=== PATIENT | male | born 1935 | race Two or more races ===

== ENCOUNTER 2017-09-15 10:17 | Inpatient (IN) | payer MEDICARE, OTHER ==
[~2017-09-15] VITALS: Ht 167.6 cm; Wt 66.5 kg
[2017-09-15] MEDS ORDERED: ASPirin 81 mg TAB PO ONE (11:00)
[2017-09-15 11:22] LABS: Basophils # (auto) 0 uL; Eosinophils # (auto) 0.2 uL; Hemoglobin 11.1 g/dL (13.5-17.5); Lymphocytes # (auto) 1.7 uL; Monocytes # (auto) 0.5 uL; Nucleated Red Blood Cells % 0.1 %; White Blood Cell 5.5 10^3/uL (4.4-10.8)
[2017-09-15 11:23] LABS: Basophils % (auto) 0.6 % (0.0-2.0); Eosinophils % (auto) 3.2 % (0.0-7.0); Hematocrit 33.8 % (41.0-53.0); Lymphocytes % (auto) 30.3 % (10.0-50.0); Mean Corpuscular Hemoglobin 33.7 pg (28.0-32.0); Mean Corpuscular Hgb Conc. 32.9 g/dL (32.0-36.0); Mean Corpuscular Volume 102.5 fL (80.0-100.0); Monocytes % (auto) 8.8 % (0.0-12.0); Neutrophils # (auto) 3.2 uL; Neutrophils % (auto) 57.1 % (37.0-80.0); Platelet Count (auto) 324 10^3/uL (140-450); Red Cell Distribution Width 16.2 % (11.8-14.3)
[2017-09-15 11:25] LABS: INR 0.95 (0.9-1.15); Partial Thromboplastin Time 26.5 sec (22.64-33.71); Prothrombin Time 10.4 sec (9.37-12.3)
[2017-09-15 11:41] LABS: Alanine Aminotransferase 48 U/L (16-61); Albumin 2.1 g/dL (3.4-5.0); Alkaline Phosphatase 173 U/L (45-117); Anion Gap 11 (5-15); Aspartate Aminotransferase 53 U/L (15-37); BUN/Creatinine Ratio 13.9; Bilirubin, Total 0.6 mg/dL (0.2-1.0); Blood Urea Nitrogen 17 mg/dL (7-18); Calcium 7.8 mg/dL (8.5-10.1); Carbon Dioxide 24 mmol/L (21-32); Chloride 107 mmol/L (98-107); GFR African American 73 mL/min; GFR Non-African American 60 mL/min; Glucose 148 mg/dL (74-106); Potassium 3.9 mmol/L (3.5-5.1); Sodium 142 mmol/L (136-145)
[2017-09-15] MEDS ORDERED: ALBU2TAB4 INH (13:01)
[2017-09-15] MEDS ORDERED: ALLO100T PO (13:02)
[2017-09-15] MEDS ORDERED: ASP81EC PO (13:02)
[2017-09-15] MEDS ORDERED: BENZ100C97 PO (13:04)
[2017-09-15] MEDS ORDERED: ATOR40TA52 PO (13:04)
[2017-09-15] MEDS ORDERED: COLC1CAP PO (13:20)
[2017-09-15] MEDS ORDERED: FINA5TAB4 PO (13:21)
[2017-09-15] MEDS ORDERED: FLUT0.05 NAS (13:21)
[2017-09-15] MEDS ORDERED: LEVO75TA50 PO (13:22)
[2017-09-15] MEDS ORDERED: LISI2.5T47 PO (13:24)
[2017-09-15] MEDS ORDERED: LOPE2CAP PO (13:24)
[2017-09-15] MEDS ORDERED: HYDROcodone-ACET 5/325MG TAB PO PRN (15:15)
[2017-09-15] MEDS ORDERED: NITROGLYCERIN 0.4 MG SL TAB SL PRN (15:15)
[2017-09-15] MEDS ORDERED: ONDANSETRON HCL 4 MG/2 ML VIAL IV PRN (15:15)
[2017-09-15] MEDS ORDERED: MORPHINE SULFATE 4 MG/ML SYR/VIAL IV PRN ×2 (15:15)
[2017-09-15] MEDS ORDERED: METO25TA5 PO (16:06)
[2017-09-15] MEDS ORDERED: MIRT15TA3 PO (16:07)
[2017-09-15] MEDS ORDERED: SILD100T57 PO (16:09)
[2017-09-15] MEDS ORDERED: TRAZ50TA2 PO (16:09)
[2017-09-15] MEDS ORDERED: TAMS0.4C36 PO (16:09)
[2017-09-15] MEDS: SODIUM CHLORIDE 0.9% 1,000 ML IV SCH (16:22)
[2017-09-15] MEDS ORDERED: IOHEXOL 300 MG/ML 100ML BOTTLE IJ ONE (17:08)
[2017-09-15] MEDS ORDERED: HEPARIN DRIP/D5W 100UNITS/ML 250 ML IV SCH (17:36)
[2017-09-15] MEDS ORDERED: ATORVASTATIN 20 MG TAB PO ONE (17:45)
[2017-09-15] MEDS ORDERED: CLOPIDOGREL BISULFATE 75 MG TAB PO ONE (17:45)
[2017-09-15] MEDS ORDERED: HEPARIN SODIUM (PORCINE) 5000 UNITS/ML 1ML VIAL IV ONE (17:45)
[2017-09-15] MEDS: IPRATROPIUM BROM 0.5 MG/2.5ML INH SOL NEB SCH (18:45)
[2017-09-15] MEDS: ALBUTEROL SULF 2.5 MG/0.5ML(0.5%) NEB SOLN NEB SCH (18:45)
[2017-09-15 19:05] LABS: Basophils # (auto) 0 uL; Basophils % (auto) 0.6 % (0.0-2.0); Eosinophils # (auto) 0 uL; Eosinophils % (auto) 0.4 % (0.0-7.0); Hematocrit 30.6 % (41.0-53.0); Lymphocytes # (auto) 0.7 uL; Lymphocytes % (auto) 15.3 % (10.0-50.0); Mean Corpuscular Hemoglobin 33.7 pg (28.0-32.0); Mean Corpuscular Hgb Conc. 32.8 g/dL (32.0-36.0); Mean Corpuscular Volume 102.7 fL (80.0-100.0); Monocytes # (auto) 0.4 uL; Neutrophils # (auto) 3.7 uL; Neutrophils % (auto) 75.7 % (37.0-80.0); Platelet Count (auto) 307 10^3/uL (140-450); Red Blood Cells 2.98 10^6/uL (4.5-5.90); Red Cell Distribution Width 16.1 % (11.8-14.3); White Blood Cell 4.9 10^3/uL (4.4-10.8)
[2017-09-15 19:53] LABS: INR 1.1 (0.9-1.15)
[2017-09-15 20:06] LABS: Urine Bacteria NONE SEEN /hpf (None Seen); Urine Blood Negative /uL (Negative); Urine Hyaline Cast FEW /lpf (0 - 2); Urine Specific Gravity 1.014 (1.001-1.035); Urine WBC <1 /hpf (0 - 3)
[2017-09-15 21:00] VITALS: BP 138/83
[2017-09-15 21:02] LABS: Partial Thromboplastin Time 96.5 sec (22.64-33.71)
[2017-09-15 21:05] VITALS: BP 138/83
[2017-09-15 21:34] LABS: Urine Bacteria NONE SEEN /hpf (None Seen); Urine Blood Negative /uL (Negative); Urine Hyaline Cast FEW /lpf (0 - 2); Urine Specific Gravity 1.019 (1.001-1.035); Urine WBC <1 /hpf (0 - 3)
[2017-09-15 22:54] LABS: INR 1.02 (0.9-1.15); Partial Thromboplastin Time 61.1 sec (22.64-33.71); Prothrombin Time 11.1 sec (9.37-12.3)
[2017-09-16] VITALS (7 sets, daily range): BP systolic 112–155; BP diastolic 56–89
[2017-09-16 02:29] LABS: INR 1.02 (0.9-1.15); Partial Thromboplastin Time 43.7 sec (22.64-33.71); Prothrombin Time 11.1 sec (9.37-12.3)
[2017-09-16] MEDS: SODIUM CHLORIDE 0.9% 1,000 ML IV SCH (03:07)
[2017-09-16] MEDS: ALBUTEROL SULF 2.5 MG/0.5ML(0.5%) NEB SOLN NEB SCH ×2 (06:13)
[2017-09-16] MEDS: IPRATROPIUM BROM 0.5 MG/2.5ML INH SOL NEB SCH ×4 (06:13→20:03)
[2017-09-16] MEDS: LEVOTHYROXINE SODIUM 25 MCG TAB PO SCH (06:59)
[2017-09-16 07:00] LABS: Basophils # (auto) 0 uL; Eosinophils # (auto) 0.1 uL; Mean Corpuscular Volume 102.3 fL (80.0-100.0); Neutrophils # (auto) 3.1 uL; Neutrophils % (auto) 65.3 % (37.0-80.0); White Blood Cell 4.7 10^3/uL (4.4-10.8)
[2017-09-16 07:06] LABS: Basophils % (auto) 0.9 % (0.0-2.0); Eosinophils % (auto) 2.8 % (0.0-7.0); Hematocrit 28.7 % (41.0-53.0); Hemoglobin 9.6 g/dL (13.5-17.5); Mean Corpuscular Hemoglobin 34.2 pg (28.0-32.0); Mean Corpuscular Hgb Conc. 33.5 g/dL (32.0-36.0); Monocytes # (auto) 0.5 uL; Platelet Count (auto) 303 10^3/uL (140-450); Red Cell Distribution Width 16.2 % (11.8-14.3)
[2017-09-16 07:31] LABS: BUN/Creatinine Ratio 18.2; Calcium 7.8 mg/dL (8.5-10.1); Potassium 3.7 mmol/L (3.5-5.1)
[2017-09-16 09:49] LABS: INR 1.05 (0.9-1.15); Prothrombin Time 11.4 sec (9.37-12.3)
[2017-09-16] MEDS: CLOPIDOGREL BISULFATE 75 MG TAB PO SCH (10:00)
[2017-09-16] MEDS: ASPirin 81 mg TAB PO SCH ×2 (10:00→15:05)
[2017-09-16 10:03] LABS: Partial Thromboplastin Time 143.1 sec (22.64-33.71)
[2017-09-16] MEDS ORDERED: LIDOCAINE 2%HCL (LOCAL ANESTH.) INJ 20ML MDV ONE (11:21)
[2017-09-16] MEDS ORDERED: IOHEXOL 350 MG/ML 100ML IJ ONE (11:21)
[2017-09-16] MEDS ORDERED: MIDAZOLAM HCL 1MG/1ML-2 ML VIAL ONE (11:37)
[2017-09-16] MEDS ORDERED: ANGIOMAX 250 MG VIAL IV ONE (11:37)
[2017-09-16] MEDS ORDERED: fentaNYL CITRATE 100 MCG/2 ML VL ONE (11:37)
[2017-09-16] MEDS ORDERED: VERAPAMIL 2.5MG/ML INJ 2ML VIAL IV ONE (11:37)
[2017-09-16] MEDS ORDERED: SODIUM CHL 0.9% 0 ML ONE (11:38)
[2017-09-16] MEDS ORDERED: HEPARIN SODIUM (PORCINE) 5000 UNITS/ML 1ML VIAL ONE (11:45)
[2017-09-16] MEDS ORDERED: DEXTROSE (50%) 50ML SYRG IV PRN (14:00)
[2017-09-16] MEDS: FINASTERIDE 5 MG TAB PO SCH (15:05)
[2017-09-16] MEDS: ALLOPURINOL 100 MG TAB PO SCH (15:05)
[2017-09-16] MEDS: PANTOPRAZOLE 40 MG TAB PO SCH (15:05)
[2017-09-16] MEDS: InsuLIN REG 1unit/0.01ml Soln (100units/ml) SC SCH ×2 (17:00→21:34)
[2017-09-16] MEDS: ACCU-CHEK COMFORT CURVE STRIP VI SCH ×2 (17:09→21:34)
[2017-09-16] MEDS: Boost Glucose Control 8 Ounces PO SCH (17:48)
[2017-09-16] MEDS: ATORVASTATIN 20 MG TAB PO SCH (21:33)
[2017-09-16] MEDS: METOPROLOL TARTRATE 25 MG TAB PO SCH (21:34)
[2017-09-17] MEDS: IPRATROPIUM BROM 0.5 MG/2.5ML INH SOL NEB SCH ×4 (00:53→19:22)
[2017-09-17 05:00] VITALS: BP 113/60
[2017-09-17 05:58] LABS: Basophils # (auto) 0 uL; Eosinophils # (auto) 0.2 uL; Lymphocytes # (auto) 0.9 uL; Monocytes # (auto) 0.4 uL; Neutrophils # (auto) 2.6 uL; White Blood Cell 4.2 10^3/uL (4.4-10.8)
[2017-09-17 06:00] LABS: Eosinophils % (auto) 4.2 % (0.0-7.0); Hematocrit 26.6 % (41.0-53.0); Hemoglobin 8.9 g/dL (13.5-17.5); Lymphocytes % (auto) 22.2 % (10.0-50.0); Mean Corpuscular Hemoglobin 33.9 pg (28.0-32.0); Mean Corpuscular Hgb Conc. 33.2 g/dL (32.0-36.0); Mean Corpuscular Volume 102.1 fL (80.0-100.0); Monocytes % (auto) 10.1 % (0.0-12.0); Neutrophils % (auto) 62.5 % (37.0-80.0); Nucleated Red Blood Cells % 0.2 %; Platelet Count (auto) 291 10^3/uL (140-450); Red Blood Cells 2.61 10^6/uL (4.5-5.90); Red Cell Distribution Width 16.2 % (11.8-14.3)
[2017-09-17 06:11] LABS: Albumin 1.8 g/dL (3.4-5.0); Calcium 8.2 mg/dL (8.5-10.1); Potassium 4.1 mmol/L (3.5-5.1)
[2017-09-17 06:14] LABS: BUN/Creatinine Ratio 24.8
[2017-09-17] MEDS: ACCU-CHEK COMFORT CURVE STRIP VI SCH (06:14)
[2017-09-17] MEDS: InsuLIN REG 1unit/0.01ml Soln (100units/ml) SC SCH (06:14)
[2017-09-17] MEDS: LEVOTHYROXINE SODIUM 25 MCG TAB PO SCH (06:31)
[2017-09-17 06:33] LABS: Bilirubin, Total 0.6 mg/dL (0.2-1.0); Total Protein 5.9 g/dL (6.4-8.2)
[2017-09-17] MEDS: Boost Glucose Control 8 Ounces PO SCH ×3 (08:07→18:46)
[2017-09-17 09:00] VITALS: BP 114/78
[2017-09-17] MEDS: ASPirin 81 mg TAB PO SCH (09:20)
[2017-09-17] MEDS: FINASTERIDE 5 MG TAB PO SCH (09:20)
[2017-09-17] MEDS: CLOPIDOGREL BISULFATE 75 MG TAB PO SCH (09:20)
[2017-09-17] MEDS: ALLOPURINOL 100 MG TAB PO SCH (09:20)
[2017-09-17] MEDS: METOPROLOL TARTRATE 25 MG TAB PO SCH ×2 (09:21→22:22)
[2017-09-17] MEDS: PANTOPRAZOLE 40 MG TAB PO SCH (09:21)
[2017-09-17 13:00] VITALS: BP 115/64
[2017-09-17 17:00] VITALS: BP 130/72
[2017-09-17 22:00] VITALS: BP 101/60
[2017-09-17] MEDS: ATORVASTATIN 20 MG TAB PO SCH (22:21)
[2017-09-18 05:00] VITALS: BP 113/68
[2017-09-18] MEDS: IPRATROPIUM BROM 0.5 MG/2.5ML INH SOL NEB SCH ×2 (06:00→11:50)
[2017-09-18] MEDS: LEVOTHYROXINE SODIUM 25 MCG TAB PO SCH (06:19)
[2017-09-18 08:00] VITALS: BP 107/68
[2017-09-18] MEDS: CLOPIDOGREL BISULFATE 75 MG TAB PO SCH (09:34)
[2017-09-18] MEDS: PANTOPRAZOLE 40 MG TAB PO SCH (09:34)
[2017-09-18] MEDS: ALLOPURINOL 100 MG TAB PO SCH (09:34)
[2017-09-18] MEDS: METOPROLOL TARTRATE 25 MG TAB PO SCH (09:34)
[2017-09-18] MEDS: ASPirin 81 mg TAB PO SCH (09:34)
[2017-09-18] MEDS: FINASTERIDE 5 MG TAB PO SCH (09:34)
[2017-09-18] MEDS: Boost Glucose Control 8 Ounces PO SCH ×2 (09:35→13:34)
[2017-09-18 12:36] VITALS: BP 117/80
== END 2017-09-18 13:20 | disposition home or self-care (01) | DRG 280 ==
LOC: ER 10:17 → EDBD 10:17 → TELE 10:18 → TELE-WESTW 20:53
PROVIDERS: ADMIT Internal Medicine; ATTEND Internal Medicine
PROC: 4A023N7 Measurement of Cardiac Sampling and Pressure, Left Heart, Percutaneous Approach (ICD-10-PCS; principal; 2017-09-16)
PROC: B2111ZZ Fluoroscopy of Multiple Coronary Arteries using Low Osmolar Contrast (ICD-10-PCS; 2017-09-16)
DX: I21.4 Non-ST elevation (NSTEMI) myocardial infarction (principal); E43 Unspecified severe protein-calorie malnutrition; C79.02 Secondary malignant neoplasm of left kidney and renal pelvis; C79.01 Secondary malignant neoplasm of right kidney and renal pelvis; C34.90 Malignant neoplasm of unspecified part of unspecified bronchus or lung; D63.8 Anemia in other chronic diseases classified elsewhere; C34.91 Malignant neoplasm of unspecified part of right bronchus or lung; C34.92 Malignant neoplasm of unspecified part of left bronchus or lung; E03.9 Hypothyroidism, unspecified; E78.5 Hyperlipidemia, unspecified; R59.0 Localized enlarged lymph nodes; R73.9 Hyperglycemia, unspecified; M10.9 Gout, unspecified; N18.1 Chronic kidney disease, stage 1; I25.10 Atherosclerotic heart disease of native coronary artery without angina pectoris; I13.10 Hypertensive heart and chronic kidney disease without heart failure, with stage 1 through stage 4 chronic kidney disease, or unspecified chronic kidney disease; Z79.02 Long term (current) use of antithrombotics/antiplatelets; Z79.82 Long term (current) use of aspirin; Z85.118 Personal history of other malignant neoplasm of bronchus and lung; Z85.528 Personal history of other malignant neoplasm of kidney; Z79.899 Other long term (current) drug therapy; Z95.5 Presence of coronary angioplasty implant and graft; Z68.23 Body mass index [BMI] 23.0-23.9, adult
CPT/HCPCS: 36415; 71250; 71260; 74177; 78306; 80048; 80053; 81001; 82962; 83036; 83880; 84443; 84484; 85025; 85610; 85730; 93005; 93306; 93458; 94640; 96361; 96365; 96375; 99152; 99291; J2250